=== PATIENT | female | born 1970 | race Caucasian/White ===

== ENCOUNTER 2019-08-09 11:51 | Inpatient (IN) | payer BC ==
[2019-08-09 13:11] VITALS: BMI 34.9
[2019-08-09] MEDS: IBUPROFEN 600 MG TAB PO SCH ×2 (14:00→21:00)
[2019-08-09] MEDS ORDERED: VANCOMYCIN 1.5 GM in NA CHLORIDE 0.9% 500 ML IVPB SCH (14:00)
--- NOTE | 2019-08-09 15:14 | P.CNS ---
Date of Consult: 08/09/19 Reason for Consult: Management of chronic conditions Requesting Physician: Rolf Montilla Primary Care Provider: Jl Chief Complaint: Finger pain/swelling History of Present Illness: 48-year-old female history of hypertension and hypothyroidism presented to orthopedics office after sustaining a puncture injury to her right 3rd finger about a week and a half ago. Patient has been on 2 courses of oral antibiotics, but the swelling and pain persisted. Orthopedic doctor admitted patient for an incision and drainage of her right 3rd digit in addition to IV antibiotics and pain medications. Home medications list reviewed: Yes - Past Medical/Surgical History Diabetic: No -: Hypertension -: Hypothyroidism -: Depression -: Section x2 -: Lap Cholecystectomy -: Shoulder surgery -: Knee surgery Psychosocial/ Personal History: Patient lives at home with family. - Family History Mother Medical History: Hypertension, Diabetes Family History: Reviewed- Non-Contributory - Social History Smoking Status: Never smoker Alcohol use: Yes CD- Drugs: No Caffeine use: No Place of Residence: Home <Marino Curry - Last Filed: 08/09/19 15:09> <Destin Mujica - Last Filed: 08/09/19 18:03> Allergies No Known Allergies Allergy (Unverified 08/09/19 12:09) Home Medications: Bupropion HCl [Bupropion Xl] 300 mg PO DAILY 08/09/19 Citalopram [Celexa*] 10 tab PO DAILY 08/09/19 Doxycycline Hyclate 100 mg PO BID 08/09/19 Levothyroxine Sodium [Synthroid] 25 mcg PO [id number] 08/09/19 Lisinopril/Hydrochlorothiazide [Lisinopril-Hctz 10-12.5 mg Tab] 10 tab DAILY 08/09/19 Review of Systems General: Unremarkable Eyes: Unremarkable ENT: Unremarkable Respiratory: Unremarkable Cardiovascular: Unremarkable Gastrointestinal: Unremarkable Genitourinary: Unremarkable Musculoskeletal: Hand Pain (Pain to right 3rd digit) Integumentary: Rash (Redness to right 3rd digit) Neurological: Unremarkable Lymphatics: Unremarkable <Marino Curry - Last Filed: 08/09/19 15:09> Physical Examination Temp Pulse Resp BP Pulse Ox 98.2 F 52 16 115/74 100 08/09/19 12:00 08/09/19 12:00 08/09/19 12:00 08/09/19 12:00 08/09/19 12:00 General: Alert, In no apparent distress, Oriented x3 HEENT: Atraumatic, Normocephalic Neck: Supple Respiratory: Normal air movement Capillary refill: <2 Seconds Gastrointestinal: Non-distended Musculoskeletal: Swelling (To right 3rd digit, pain with percussion to volar aspect right 3rd digit, fusiform swelling to right 3rd digit, right 3rd digit held in passive flexion, pain with extension of right 3rd digit), Erythema, Tenderness Neurological: Normal speech Laboratory Data (last 24 hrs) 08/09/19 13:50: Creatinine 0.78 <Marino Curry - Last Filed: 08/09/19 15:09> Temp Pulse Resp BP Pulse Ox 98.7 F 52 16 119/71 98 08/09/19 16:00 08/09/19 16:00 08/09/19 16:00 08/09/19 16:00 08/09/19 16:00 Laboratory Data (last 24 hrs) 08/09/19 17:17: WBC 10.9, Hgb 11.5 L, Hct 34.6 L, Plt Count 206 08/09/19 16:59: Sodium 141, Potassium 4.2, BUN 14, Creatinine 0.80, Glucose 191 H, Total Bilirubin 0.2, AST 17, ALT 26, Alkaline Phosphatase 64 08/09/19 13:50: Creatinine 0.78 <Destin Mujica - Last Filed: 08/09/19 18:03> Conclusions/Impression: Assessment Flexor tenosynovitis of the right 3rd digit Hypertension Hypothyroidism Depression Plan Flexor tenosynovitis of the right 3rd digit- this condition to be managed by orthopedic doctor, patient will be receiving IV antibiotics in addition to a incision and drainage/washout of the 3rd digit. Patient to remain NPO after midnight. Medications for pain and fever have been ordered. Will await further guidance from orthopedic physician to manage this condition. DVT prophylaxis with SCDs. Hypertension- will continue patient's home medications during hospitalization. Hypothyroidism- will continue home medications. Depression- will continue patient's home medications. Critical Care: No Time Spent Managing Pts care (In Minutes): 55 <Marino Curry - Last Filed: 08/09/19 15:09> Conclusions/Impression: Case discussed at length with nurse practitioner. Agree with plan of care. Will restart home medications for blood pressure, hypothyroidism and depression. Patient will be NPO after midnight. Orthopedic to further evaluate tenosynovitis. <Destin Mujica - Last Filed: 08/09/19 18:03>
[2019-08-09] MEDS: HYDROCODONE/APAP 5/325 MG TAB PO PRN ×2 (15:15→21:29)
[2019-08-09] MEDS: VANCOMYCIN 1.5 GM in NA CHLORIDE 0.9% 500 ML IVPB SCH (16:20)
[2019-08-09 17:34] LABS: Bilirubin Total 0.2 mg/dL (0.2-1.0); C-Reactive Protein 4.82 mg/L (<3.00); Potassium 4.2 mmol/L (3.5-5.1); Protein, Total 6.4 g/dL (6.4-8.2)
[2019-08-09 17:56] LABS: Absolute Lymphocytes (CBC) 1.3 K/uL (0.7-4.9); Basophils % 0.3 % (0-1.3); Hematocrit 34.6 % (36.0-45.0); Lymphocytes % 11.8 % (15.3-44.8); MPV 9.2 fL (7.6-11.3); RBC Red Blood Cell Count 3.79 M/uL (3.86-4.86)
[2019-08-09] MEDS: CLINDAMYCIN INJ 900 MG in NA CHLORIDE 0.9% 50 ML IV SCH (18:14)
--- NOTE | 2019-08-10 00:17 | HP ---
Date of Admission: 08/09/2019 This is my first time seeing this patient to my knowledge. History Of Present Illness: She describes having a piece of wood placed into her finger after liftin g approximately 2 weeks ago. She had some pain at that time, however, has had developed swelling as well as increased pain. She went to see a primary care physician and was given antibiotics. Unfortu nately, her symptoms continued to progress. She says now it is quite painful. Past Medical History: Significant for hypertension and depression. Allergies: SHE HAS NO KNOWN DRUG ALLERGIES. Past Surgical History: She has had a previous arthroscopy of her left shoulder and right knee. Medications: Please refer to her list. Physical Examination: HEENT: Normocephalic, atraumatic. Lungs: Clear to auscultation. Abdomen: Benign. Extremities: She is complaining of left hand pain. Her left third digit is swollen in a fusiform fa shion. She does move in a slightly flexed posture. She does have pain along the course of the tendo n sheath and she has pain with passive finger extension. She is otherwise appears neurovascularly in tact. Imaging Data: X-rays were done at outside facility, which fail to demonstrate any foreign body or [place] abnormality, some maybe some soft tissue swelling. Assessment: A lady now with probable subacute inflammation of flexor tendon. There is great concern that this could be septic flexor tenosynovitis or perhaps a retained foreign body. We will at this time admit to the hospital for IV antibiotics. Place her n.p.o. after midnight and did consider nithya thakkar that today. However, it is very difficult given the current climate of the virus to complete this and should probably be done on a more scheduled basis as she has had this problem for 2 weeks and hop efully the IV antibiotics can help control. Risks, benefits, and alternatives of this procedure have been discussed with her. She states she understands things presented. We will also ask the hospita list to see her. All of her questions were otherwise answered. VILLA Voice ID: [id number]
[2019-08-10] MEDS: CLINDAMYCIN INJ 900 MG in NA CHLORIDE 0.9% 50 ML IV SCH ×3 (00:50→17:04)
[2019-08-10] MEDS: levoFLOXacin 500 MG TAB PO SCH (08:32)
[2019-08-10] MEDS: VANCOMYCIN 1.5 GM in NA CHLORIDE 0.9% 500 ML IVPB SCH (08:33)
[2019-08-10] MEDS: IBUPROFEN 600 MG TAB PO SCH ×3 (08:45→21:17)
[2019-08-10] MEDS: BUPROPION HCL XL 150 MG TAB PO SCH (09:16)
[2019-08-10] MEDS: CITALOPRAM 10 MG TABLET PO SCH (09:16)
[2019-08-10] MEDS ORDERED: Ringers Lactate 1,000 ML IV ONE (11:15)
[2019-08-10] MEDS ORDERED: dexAMETHasone 10 MG/ML VIAL ONE (11:32)
[2019-08-10] MEDS ORDERED: MIDAZOLAM HCL 2 MG/2 ML INJ ONE (11:32)
[2019-08-10] MEDS ORDERED: propofoL 200 MG/20 ML VIAL IV ONE (11:32)
[2019-08-10] MEDS ORDERED: LIDOCAINE 2% MPF 5 ML VIAL ONE (11:32)
[2019-08-10] MEDS ORDERED: FENTANYL CITR 100 MCG/2 ML ONE (11:32)
[2019-08-10] MEDS ORDERED: KETOROLAC 30 MG/ML INJ ONE (11:32)
--- NOTE | 2019-08-10 12:40 | P.BOP ---
Preoperative diagnosis: right 3rd flexor septic tenosynovitis Postoperative diagnosis: same Primary procedure: open I&D with flushing of tendon sheath Estimated blood loss: 5 ccs Anesthesia: General Complications: None Transferred to: Recovery Room
[2019-08-10] MEDS: HYDROMORPHONE HCL 1 MG/ML INJ ONE ×2 (12:59→13:05)
[2019-08-10] MEDS ORDERED: ONDANSETRON 4 MG/2 ML VIAL ONE (13:03)
[2019-08-10] MEDS ORDERED: PROMETHAZINE INJ 25 MG/ML AMP ONE (13:14)
--- NOTE | 2019-08-10 13:17 | P.PN ---
Subjective Date of Service: 08/10/19 Primary Care Provider: Jl Chief Complaint: Finger pain/swelling Subjective: No C/O voiced, Doing well <Marino Curry - Last Filed: 08/10/19 13:13> Date of Service: 08/10/19 <Destin Mujica - Last Filed: 08/10/19 15:28> Review of Systems General: Unremarkable Eyes: Unremarkable ENT: Unremarkable Respiratory: Unremarkable Cardiovascular: Unremarkable Gastrointestinal: Unremarkable Genitourinary: Unremarkable Musculoskeletal: As per HPI Integumentary: As per HPI Neurological: Unremarkable Lymphatics: Unremarkable <Marino Curry - Last Filed: 08/10/19 13:13> Physical Examination - Vital Signs Temperature: 98.1 F Blood Pressure: 124/74 Pulse: 58 Respirations: 16 Pulse Ox (%): 99 - Physical Exam General: Alert, In no apparent distress, Oriented x3 HEENT: Atraumatic Neck: Supple Respiratory: Normal air movement Capillary refill: <2 Seconds Gastrointestinal: Normal bowel sounds Musculoskeletal: Swelling, Tenderness (Volar aspect of right 3rd finger) Neurological: Normal gait, Normal speech - Studies Laboratory Data (last 24 hrs) 08/09/19 17:17: WBC 10.9, Hgb 11.5 L, Hct 34.6 L, Plt Count 206 08/09/19 16:59: Sodium 141, Potassium 4.2, BUN 14, Creatinine 0.80, Glucose 191 H, Total Bilirubin 0.2, AST 17, ALT 26, Alkaline Phosphatase 64 08/09/19 13:50: Creatinine 0.78 <Marino Curry - Last Filed: 08/10/19 13:13> - Studies Laboratory Data (last 24 hrs) 08/09/19 17:17: WBC 10.9, Hgb 11.5 L, Hct 34.6 L, Plt Count 206 08/09/19 16:59: Sodium 141, Potassium 4.2, BUN 14, Creatinine 0.80, Glucose 191 H, Total Bilirubin 0.2, AST 17, ALT 26, Alkaline Phosphatase 64 <Destin Mujica - Last Filed: 08/10/19 15:28> Assessment & Plan Plan to discharge in: 24 Hours Physician Review Additional Text: Assessment Flexor tenosynovitis of the right 3rd digit Hypertension Hypothyroidism Depression Plan Flexor tenosynovitis of the right 3rd digit- patient was taken to the operating room for an incision and drainage along with a washout of the right 3rd digit. Antibiotics have been continued overnight. Blood pressure has remains on the low side of normal but stable. Infectious Disease was consulted to determine the best choice and antibiotics should the patient be discharged on oral antibiotics. Redness and swelling to the right 3rd digit have decreased significantly before the patient went to the operating room. Will await further input from orthopedics regarding when patient can be discharged. Patient states that she wants to leave as soon as possible. Hypertension- Blood pressure has remains on the low side of normal but stable. Will continue to monitor blood pressure to determine need for adjustment in dose for her discharge. Hypothyroidism- will continue home medications. Depression- will continue patient's home medications. Critical Care: No Time Spent Managing Pts Care (In Minutes): 55 <Marino Curry - Last Filed: 08/10/19 13:13> Physician Review Additional Text: Patient seen and examined with nurse practitioner Marino Curry. Agree with plan of care. Case reviewed in detail. Orthopedic plans for surgery today. Will follow along. <Destin Mujica - Last Filed: 08/10/19 15:28>
--- NOTE | 2019-08-10 15:18 | P.CNS ---
Date of Consult: 08/10/19 Subjective: Patient is a 48-year-old female who presents with swelling and pain to the right 3rd digit after a piece of wood lodged into her finger about 2 weeks ago. Patient was seen and treated by PCP but symptoms continued to worsen. Patient found to have right third flexor septic tenosynovitis which I have been consulted for. PMH/surgical: Hypertension and depression Family history: Noncontributory Social history: Patient denies tobacco and alcohol use Active Medications Hydrocodone Bitart/Acetaminophen ([place] 5/325) 1 tab PO Q6HP PRN PRN Reason: Pain Stop: 09/08/19 13:27 Last Admin: 08/09/19 21:29 Dose: 1 tab Documented by: Bupropion HCl (Wellbutrin Xl) 300 mg PO DAILY KONSTANTIN Stop: 09/09/19 09:01 Last Admin: 08/10/19 09:16 Dose: 300 mg Documented by: Citalopram Hydrobromide (Celexa) 10 mg PO DAILY KONSTANTIN Stop: 09/09/19 09:01 Last Admin: 08/10/19 09:16 Dose: 10 mg Documented by: Clindamycin Phosphate 900 mg/ (Sodium Chloride) 56 mls @ 112 mls/hr IV Q8HR KONSTANTIN Stop: 09/08/19 17:01 Last Admin: 08/10/19 08:32 Dose: 56 mls Documented by: Vancomycin HCl 1.5 gm/ Sodium (Chloride) 500 mls @ 250 mls/hr IVPB Q18H KONSTANTIN Stop: 09/08/19 15:01 Last Admin: 08/10/19 08:33 Dose: 500 mls Documented by: Ibuprofen (Motrin) 600 mg PO TID KONSTANTIN Stop: 09/08/19 14:01 Last Admin: 08/10/19 08:45 Dose: Not Given Documented by: Levofloxacin (Levaquin) 500 mg PO DAILY KONSTANTIN Stop: 09/09/19 09:01 Last Admin: 08/10/19 08:32 Dose: 500 mg Documented by: Levothyroxine Sodium (Synthroid) 0.025 mg PO DAILYAC KONSTANTIN Stop: 09/10/19 06:31 Allergies No Known Allergies Allergy (Unverified 08/09/19 12:09) ROS: CV: Denies chest pain SOB: Denies shortness of breath, cough GI: Denies nausea, vomiting, diarrhea : denies burning/difficulty urinating Skin: Reports redness, swelling pain to right hand Objective: Temp Pulse Resp BP Pulse Ox 98.1 F 58 16 124/74 99 08/10/19 13:17 08/10/19 13:17 08/10/19 13:17 08/10/19 13:17 08/10/19 13:17 Laboratory Data (last 24 hrs) 08/09/19 17:17: WBC 10.9, Hgb 11.5 L, Hct 34.6 L, Plt Count 206 08/09/19 16:59: Sodium 141, Potassium 4.2, BUN 14, Creatinine 0.80, Glucose 191 H, Total Bilirubin 0.2, AST 17, ALT 26, Alkaline Phosphatase 64 ROS: General: Lethargic, lying in bed CV: S1, S2 RESP: clear to auscultation ABD: round, soft, nontender Extremities: Right hand wrapped in Rohit bandage, s/p I&D and washout Assessment and plan: Septic Tenosynovitis to right third flexor, S/P I&D 08/09 No leukocytosis, Afebrile Wound culture pending Currently on Vancomycin and Clindamycin Recommend to discharge on Doxycycline 100mg PO BID and Cipro 500mg PO BID for total of 2 weeks Patient to follow up with PCP in one week Will continue to monitor Thank you for consult Patient discussed with doctor alfred
--- NOTE | 2019-08-10 23:38 | OP ---
Date of Procedure: 08/10/2019 Surgeon: Rolf Montilla MD Preoperative Diagnosis: Right hand probable septic flexor tenosynovitis of the 3rd digit. Postoperative Diagnosis: Right hand probable septic flexor tenosynovitis of the 3rd digit. Procedure: Right 3rd digit open irrigation and debridement with flushing of the flexor tendon sheath and exploration. Estimated Blood Loss: 5 mL. Complications: There are no complications. Specimens: No pathology specimen sent; however, there are culture sent. Indications For Operation: Ms. Acevedo is a patient, who unfortunately has had pain and problems rela adrien to her hand for 2 weeks. She has been to 2 different facilities and obtained oral antibiotics ea ch time. The first time really did not have much effect with her hand being extremely swollen and ve ry painful along the 3rd digit. This occurs after a puncture wound. She then tried a different anti biotic, which appeared to be more efficacious. However, she still has significant pain related to he r hand and finger. On physical examination, she does have fusiform swelling as well as pain througho ut the tendon sheath. She holds it in a flexed posture. She has pain with extension. She says that although she did have some initial positive results with the different antibiotics that she has esse ntially failed to improve after that. X-rays do not demonstrate any fracture dislocation. She says she may have a piece of wood in her finger from the laceration. All risks, benefits, and alternative s to this procedure were discussed with the patient. She states she understand things as presented a nd wished to proceed and she does know the quite serious nature of this problem. Description Of Procedure: Patient was taken to the operating room and placed in supine position. Ge neral anesthesia was obtained by the staff. Following this, a well-padded tourniquet was placed on s uperior right arm. Right upper extremity was than prepped and draped in usual sterile fashion for th e procedure. Following this, the arm was then elevated, but not exsanguinated. Tourniquet was raise d. A standard transverse incision was then made directly over the A1 isaura. This was taken down ca refully through skin only. There is some boggy swelling in this area. There was also some fluid, bu t no filiberto pus. The A1 isaura was encountered and it was then divided in its midsubstance from a pro ximal to distal direction and then from a distal to proximal direction until no constricting bands. With placement of this incision, a significant amount of more fluid came which maybe slightly milky, but definitely not consistent with a fulminant pus and this fluid was then sent for culture. After t his, the tendon sheath was then compressed and they could see easy flow of synovial fluid out of the incision from the A1 isaura. Following this, a Dilip incision was then made, which was centered ove r the PIP, which was the region of the injury to the finger. This was taken down very carefully thro ugh skin only. Care being taken to remain in midline once the skin incision was made. This was take n down carefully until the tendon is seen. The actual tendon itself and tendon sheaths she may actua lly have had a laceration in the region of the tendon sheath, but appears that well affixed to bone. Care was taken not to overly violate the A3, A2, or A4 pulleys. However; there is some spreading an d debridement done between the pulleys. A fairly significant amount of exploration was done to try t o locate any piece of wood. No wood was actually seen. After this, the tendon sheath was then irrig ated from both a distal to proximal direction using Angiocath as well as a proximal to distal directi on using an Angiocath until it runs completely clear. Estimate probably at least 1 L of sterile sali ne was used. After this, the finger was then compressed. There was found to be no more milky fluid or sign of infection. The wound was again gently irrigated externally and the distal Dilip incision was closed using nylon sutures. The more proximal incision at the A1 isaura was not closed. Amanda leary was placed in a well-padded sterile dressing as well as a volar splint and awakened and taken to recovery room in good condition. There were no complications. SE/MODL Voice ID: [id number] Report ID: [id number]
[2019-08-11] MEDS: CLINDAMYCIN INJ 900 MG in NA CHLORIDE 0.9% 50 ML IV SCH ×2 (01:09→09:08)
[2019-08-11] MEDS: VANCOMYCIN 1.5 GM in NA CHLORIDE 0.9% 500 ML IVPB SCH (03:50)
[2019-08-11 06:27] VITALS: BP 111/58; TEMP 97.1
[2019-08-11] MEDS ORDERED: LEVOTHYROXINE SOD 0.025 MG TAB PO SCH (06:30)
--- NOTE | 2019-08-11 08:30 | P.PN ---
Subjective Date of Service: 08/11/19 Primary Care Provider: Jl Chief Complaint: Finger pain/swelling Subjective: Improving, Doing well Physical Examination - Vital Signs Temperature: 97.1 F Blood Pressure: 111/58 Pulse: 54 Respirations: 16 Pulse Ox (%): 97 - Physical Exam General: Alert, In no apparent distress, Oriented x3, Cooperative HEENT: Atraumatic Neck: Supple Respiratory: Clear to auscultation bilaterally, Normal air movement Cardiovascular: Normal pulses, Regular rate/rhythm Gastrointestinal: Normal bowel sounds, Soft and benign, Non-distended Musculoskeletal: Other (Patient has better movement of hand.) Integumentary: Other (No exudate noted. Swelling improved. This was reviewed with orthopedics at bedside.) Neurological: Normal speech, Normal strength at 5/5 x4 extr, Normal tone, Normal affect - Studies Medications List Reviewed: Yes Assessment & Plan Discharge Plan: Home Plan to discharge in: 24 Hours Physician Review Additional Text: Assessment Septic Flexor tenosynovitis of the right 3rd digit status post right 3rd digit open irrigation and debridement with flushing of flexor tendon sheath and exploration Hypertension Hypothyroidism Depression Plan Septic Flexor tenosynovitis of the right 3rd digit status post right 3rd digit open irrigation and debridement with flushing of flexor tendon sheath and exploration: Patient has done well post operatively. Case reviewed and patient examined with orthopedics present. Case also reviewed with infectious disease. At discharge patient will continue with doxycycline 100 mg 1 pill twice daily and Cipro 500 mg 1 pill twice daily for 2 weeks. A prescription for pain medication has been provided by orthopedics. Patient will need to continue with exercises at least twice day in warm water. She will do this with flexing of her hand as demonstrated by orthopedics. Gauze will need to be changed once daily. Patient may place gauze then wrap finger and hand then place splint with Rohit bandaged around the splint. Education on the exercises and wound care will be provided by nursing prior to discharge. Patient will follow up with orthopedics the following Tuesday for removal of stitches. Patient stable for discharge at this time. Case discussed with orthopedics. Hypertension: Blood pressure has been well controlled without the use of her medication. Patient takes lisinopril/hydrochlorothiazide 10/12.5 mg daily. Recommend to monitor her blood pressures daily. Continue to hold blood pressure medication if systolic less than 120. If blood pressure remains elevated greater than 140 systolic then her medication may need to be restarted. Further evaluation with this can be further addressed with her PCP. Hypothyroidism: Patient may continue with her medication levothyroxine 25 mcg daily. Further adjustment can be done by her PCP. Depression with anxiety: Patient has done well. At discharge she will continue with Celexa 10 mg daily and Buproprion XL 300 mg daily. Time Spent Managing Pts Care (In Minutes): 55
[2019-08-11] MEDS: IBUPROFEN 600 MG TAB PO SCH (09:00)
[2019-08-11] MEDS: CITALOPRAM 10 MG TABLET PO SCH (09:08)
[2019-08-11] MEDS: BUPROPION HCL XL 150 MG TAB PO SCH (09:08)
[2019-08-11] MEDS: levoFLOXacin 500 MG TAB PO SCH (09:08)
[2019-08-11 10:58] VITALS: O2SAT 99
== END 2019-08-11 10:40 | disposition home or self-care (01) | DRG 558 ==
LOC: 2ND 11:51
PROVIDERS: ADMIT Orthopaedic Surgery; ATTEND Orthopaedic Surgery
PROC: 0HDGXZZ Extraction of Left Hand Skin, External Approach (ICD-10-PCS; principal; 2019-08-09)
PROC: 3E1038Z Irrigation of Skin and Mucous Membranes using Irrigating Substance, Percutaneous Approach (ICD-10-PCS; 2019-08-09)
DX: M65.841 Other synovitis and tenosynovitis, right hand (principal); F32.9 Major depressive disorder, single episode, unspecified; E03.9 Hypothyroidism, unspecified; I10 Essential (primary) hypertension; Z90.49 Acquired absence of other specified parts of digestive tract; Z79.890 Hormone replacement therapy; Z79.899 Other long term (current) drug therapy
CPT/HCPCS: 36415; 80053; 80202; 82565; 85025; 85652; 86140; 87070; 87075; 87205; J1100; J1170; J2250; J2405; J2550; J2704; J3010; J7040; J7120